=== PATIENT | male | born 1965 | race Hispanic/Latino ===

== ENCOUNTER 2020-10-30 16:24 | Inpatient (IN) | payer OTHER ==
[~2020-10-30] VITALS: Ht 185.4 cm; Wt 136.1 kg
[2020-10-30] MEDS ORDERED: PIPERACILLIN/TAZOBACTAM 3.375 GM in SODIUM CHLORIDE 0.9% 50ML 50 ML IV STA (16:55)
[2020-10-30] MEDS ORDERED: MORPHINE SULFATE INJ 2 MG/ML SYR IV PRN (17:00)
[2020-10-30] MEDS ORDERED: ONDANSETRON HCL INJ 2MG/ML 2ML 2 MG/ML VIAL IV PRN (17:00)
[2020-10-30] MEDS: SODIUM CHLORIDE 0.9% 1000ML 1,000 ML IV SCH ×2 (17:13→21:36)
[2020-10-30] MEDS ORDERED: MORPHINE SULFATE INJ 4 MG/ML INJ 1ML IV PRN (17:15)
[2020-10-30] MEDS ORDERED: SODIUM CHLORIDE 0.9% 1000ML 1,000 ML ONE (17:16)
[2020-10-30] MEDS ORDERED: PIPERACILLIN/TAZOBACTAM 3.375 GM VIAL ONE (17:17)
[2020-10-30] MEDS ORDERED: SODIUM CHLORIDE 0.9% 50ML 50 ML ONE (17:17)
[2020-10-30 18:51] VITALS: BP 137/72
[2020-10-30 19:15] VITALS: BP 121/64
[2020-10-30 20:30] VITALS: BP 121/64
[2020-10-30 22:05] VITALS: BP 121/64
[2020-10-30] MEDS ORDERED: TEMAZEPAM 15 MG CAP PO PRN (22:30)
[2020-10-30] MEDS: PIPERACILLIN/TAZOBACTAM 3.375 GM in SODIUM CHLORIDE 0.9% 50ML 50 ML IV SCH (23:14)
[2020-10-31] VITALS (8 sets, daily range): BP systolic 130–162; BP diastolic 68–80
[2020-10-31] MEDS: SODIUM CHLORIDE 0.9% 1000ML 1,000 ML IV SCH ×3 (03:51→17:14)
[2020-10-31] MEDS: PIPERACILLIN/TAZOBACTAM 3.375 GM in SODIUM CHLORIDE 0.9% 50ML 50 ML IV SCH ×3 (05:51→17:14)
[2020-10-31 07:13] LABS: BASOPHILS % 0.4 % (0.0-1.0); EOSINOPHILS # (AUTO) 0.1 (0.0-0.4); EOSINOPHILS % 0.8 % (0.0-6.0); LYMPHOCYTES # (AUTO) 3.2 (1.0-3.2); LYMPHOCYTES % 29.3 % (18.0-39.1); MEAN CORPUSCULAR HEMOGLOBIN 32.3 pg (28-32); MEAN CORPUSCULAR HGB CONC 33.3 g/dL (31-35); MONOCYTES # (AUTO) 1.1 (0.2-0.8); MONOCYTES % 9.9 % (4.4-11.3); NEUTROPHILS # (AUTO) 6.4 (2.1-6.9); PLATELET COUNT 280 x10e3/uL (140-360); RED BLOOD COUNT 3.71 x10e6/uL (4.3-5.7); RED CELL DISTRIBUTION WIDTH 13.2 % (11.7-14.4)
[2020-10-31] MEDS ORDERED: BALSAM PERU/CASTOR OIL 60 GM OINT...G. TP SCH (13:30)
[2020-10-31] MEDS: ENOXAPARIN 30 MG/0.3 ML SYR SC SCH (17:14)
[2020-11-01] VITALS: BP 134/74
[2020-11-01 04:00] VITALS: BP 125/68
[2020-11-01 05:28] LABS: BASOPHILS # (AUTO) 0.1 (0.0-0.1); BASOPHILS % 0.5 % (0.0-1.0); EOSINOPHILS # (AUTO) 0.2 (0.0-0.4); EOSINOPHILS % 1.4 % (0.0-6.0); HEMATOCRIT 37.4 % (38.2-49.6); HEMOGLOBIN 12.2 g/dL (14.0-18.0); LYMPHOCYTES # (AUTO) 4.5 (1.0-3.2); LYMPHOCYTES % 35.9 % (18.0-39.1); MEAN CORPUSCULAR HEMOGLOBIN 31.8 pg (28-32); MEAN CORPUSCULAR HGB CONC 32.6 g/dL (31-35); MEAN CORPUSCULAR VOLUME 97.4 fL (81-99); MONOCYTES # (AUTO) 1.3 (0.2-0.8); MONOCYTES % 10.1 % (4.4-11.3); NEUTROPHILS # (AUTO) 6.3 (2.1-6.9); PLATELET COUNT 300 x10e3/uL (140-360); RED BLOOD COUNT 3.84 x10e6/uL (4.3-5.7)
[2020-11-01] MEDS: PIPERACILLIN/TAZOBACTAM 3.375 GM in SODIUM CHLORIDE 0.9% 50ML 50 ML IV SCH ×5 (05:55→18:15)
[2020-11-01] MEDS: SODIUM CHLORIDE 0.9% 1000ML 1,000 ML IV SCH ×3 (05:55→17:00)
[2020-11-01 05:59] LABS: ANION GAP 12.1 mmol/L (8-16); CALCIUM 8.8 mg/dL (8.4-10.2); CREATININE, SERUM 0.74 mg/dL (0.72-1.25); POTASSIUM 4.1 mmol/L (3.5-5.1)
[2020-11-01 08:06] VITALS: BP 140/82
[2020-11-01 08:32] VITALS: BP 140/82
[2020-11-01 11:23] VITALS: BP 150/80
[2020-11-01 16:03] VITALS: BP 160/74
[2020-11-01] MEDS: ENOXAPARIN 30 MG/0.3 ML SYR SC SCH (17:00)
[2020-11-01] MEDS ORDERED: DOXYCYCLINE HY100 MG PO (18:25)
== END 2020-11-01 18:48 | disposition home or self-care (01) | DRG 872 ==
LOC: FSED 16:48 → ERHOLD 17:16 → MED/SURG3 18:43
PROVIDERS: ADMIT Family Medicine; ATTEND Family Medicine
DX: A41.9 Sepsis, unspecified organism (principal); L03.115 Cellulitis of right lower limb; Z20.822 Contact with and (suspected) exposure to COVID-19
CPT/HCPCS: 36415; 80048; 85025; 96361; 99251; 99284; J1650; J2270; J2543; J7030; U0002

== ENCOUNTER 2022-08-11 00:36 | Emergency (ER) | payer MEDICARE, OTHER ==
[~2022-08-11] VITALS: Ht 185.4 cm; Wt 147.4 kg
[~2022-08-11 00:36] MED LIST: DOXYCYCLINE HY100 MG PO
[2022-08-11] MEDS ORDERED: ONDANSETRON HCL INJ 2MG/ML 2ML 2 MG/ML VIAL IV STA (00:40)
[2022-08-11] MEDS ORDERED: ACETAMINOPHEN 1000 MG/100 ML IV STA (00:40)
[2022-08-11] MEDS ORDERED: SODIUM CHLORIDE 0.9% 1000ML 1,000 ML IV ONE ×3 (00:45→03:45)
[2022-08-11 00:53] LABS: BASOPHILS # (AUTO) 0.1 (0.0-0.1); BASOPHILS % 0.4 % (0.0-1.0); EOSINOPHILS # (AUTO) 0.1 (0.0-0.4); EOSINOPHILS % 0.6 % (0.0-6.0); HEMATOCRIT 42.7 % (38.2-49.6); HEMOGLOBIN 14.1 g/dL (14.0-18.0); LYMPHOCYTES # (AUTO) 5.1 (1.0-3.2); LYMPHOCYTES % 26.5 % (18.0-39.1); MONOCYTES # (AUTO) 0.6 (0.2-0.8); MONOCYTES % 3.1 % (4.4-11.3); NEUTROPHILS # (AUTO) 13.4 (2.1-6.9); PLATELET COUNT 244 x10e3/uL (140-360); RED CELL DISTRIBUTION WIDTH 13.2 % (11.7-14.4)
[2022-08-11 01:14] LABS: ALBUMIN 3.7 g/dL (3.5-5.0); ANION GAP 18.1 mmol/L (8-16); CREATININE, SERUM 1.02 mg/dL (0.72-1.25); POTASSIUM 4.1 mmol/L (3.5-5.1)
[2022-08-11 01:21] LABS: CREATINE KINASE MB 1.7 ng/mL (0-5.0)
[2022-08-11] MEDS ORDERED: IOPAMIDOL 370 MG/ML 100 ML INFUS..BTL INJ ONE (01:23)
[2022-08-11 02:31] LABS: CLARITY,URINE CLEAR (CLEAR); COLOR,URINE YELLOW (YELLOW); KETONES,URINE NEGATIVE (NEGATIVE); LEUKOCYTE ESTERASE ,URINE NEGATIVE (NEGATIVE); NITRITE,URINE NEGATIVE (NEGATIVE); PROTEIN,URINE DIPSTICK NEGATIVE (NEGATIVE); URINE UROBILINOGEN 0.2 mg/dL (0.2 - 1)
[2022-08-11 02:37] LABS: BACTERIA,URINE FEW /HPF; EPITHELIAL CELLS,URINE FEW /LPF; WBC,URINE (MAN) 0-5 /HPF (0-5)
[2022-08-11] MEDS ORDERED: SODIUM CHLORIDE 0.9% 1000ML 1,000 ML IV SCH (02:45)
[2022-08-11] MEDS ORDERED: Vancomycin IV 1 GM in SODIUM CHLORIDE 0.9% 250ML 250 ML IV ONE (03:45)
== END 2022-08-11 05:30 | disposition other institution (70) ==
LOC: ER 00:57
DX: R50.9 Fever, unspecified (principal); R65.20 Severe sepsis without septic shock; J18.9 Pneumonia, unspecified organism; L03.115 Cellulitis of right lower limb; D72.829 Elevated white blood cell count, unspecified; Z20.822 Contact with and (suspected) exposure to COVID-19
CPT/HCPCS: 36415; 71045; 74177; 80053; 81001; 82550; 82553; 83605; 83690; 84484; 85025; 87040; 87071; 87205; 99284; J0131; J0456; J0696; J2405; J3370; J7030; J7050; Q9967; U0002

== ENCOUNTER 2023-02-27 12:42 | Inpatient (IN) | payer MEDICARE ==
[~2023-02-27] VITALS: Ht 185.4 cm; Wt 154.0 kg
[2023-02-27] MEDS ORDERED: Morphine 4mg INJECTION 4 MG/ML INJ IV STA (13:06)
[2023-02-27] MEDS ORDERED: SODIUM CHLORIDE 0.9% 1000ML 1,000 ML IV STA (13:06)
[2023-02-27] MEDS ORDERED: ONDANSETRON HCL INJ 2MG/ML 2ML 2 MG/ML VIAL IV STA (13:06)
[2023-02-27 13:25] LABS: BASOPHILS % 0.3 % (0.0-1.0); EOSINOPHILS % 0.3 % (0.0-6.0); HEMOGLOBIN 13.6 g/dL (14.0-18.0); LYMPHOCYTES # (AUTO) 3.2 (1.0-3.2); LYMPHOCYTES % 21.9 % (18.0-39.1); MEAN CORPUSCULAR HEMOGLOBIN 31.9 pg (28-32); MEAN CORPUSCULAR HGB CONC 34.9 g/dL (31-35); MEAN CORPUSCULAR VOLUME 91.3 fL (81-99); MONOCYTES # (AUTO) 0.6 (0.2-0.8); MONOCYTES % 4.2 % (4.4-11.3); NEUTROPHILS # (AUTO) 10.8 (2.1-6.9); NEUTROPHILS % 72.8 % (38.7-80.0); PLATELET COUNT 197 x10e3/uL (140-360); RED BLOOD COUNT 4.27 x10e6/uL (4.3-5.7); RED CELL DISTRIBUTION WIDTH 13.8 % (11.7-14.4); WHITE BLOOD COUNT 14.82 x10e3/uL (4.8-10.8)
[2023-02-27 13:34] LABS: INR 1.04; PROTHROMBIN TIME 14.2 seconds (11.9-14.5)
[2023-02-27 13:35] LABS: PARTIAL THROMBOPLASTIN TIME 29.5 seconds (23.8-35.5)
[2023-02-27 13:42] LABS: ALBUMIN 3.3 g/dL (3.5-5.0); ALBUMIN/GLOBULIN RATIO 0.8 (0.8-2.0); ANION GAP 14.3 mmol/L (8-16); CALCIUM 9.3 mg/dL (8.4-10.2); CREATININE, SERUM 0.82 mg/dL (0.72-1.25); MAGNESIUM 1.8 MG/DL (1.3-2.1); POTASSIUM 3.3 mmol/L (3.5-5.1)
[2023-02-27] MEDS ORDERED: SODIUM CHLORIDE 0.9% 500ML 500 ML ONE (13:57)
[2023-02-27] MEDS ORDERED: Vancomycin IV 2 GM in SODIUM CHLORIDE 0.9% 500ML 500 ML IV ONE (14:00)
[2023-02-27] MEDS ORDERED: IOPAMIDOL 370 MG/ML 100 ML INFUS..BTL INJ ONE (14:19)
[2023-02-27 16:27] LABS: AMPHETAMINES SCREEN,URINE NEGATIVE (NEGATIVE); BENZODIAZEPINES SCREEN,URINE NEGATIVE (NEGATIVE); PHENCYCLIDINE SCREEN,URINE NEGATIVE (NEGATIVE)
[2023-02-27] MEDS ORDERED: ASPIRIN 81 MG CHEW TAB PO ONE (16:30)
[2023-02-27] MEDS ORDERED: Morphine 4mg INJECTION 4 MG/ML INJ IV PRN (16:45)
[2023-02-27] MEDS ORDERED: ONDANSETRON HCL INJ 2MG/ML 2ML 2 MG/ML VIAL IV PRN (16:45)
[2023-02-27 16:47] LABS: CLARITY,URINE HAZY (CLEAR); COLOR,URINE YELLOW (YELLOW); LEUKOCYTE ESTERASE ,URINE NEGATIVE (NEGATIVE); NITRITE,URINE NEGATIVE (NEGATIVE); PROTEIN,URINE DIPSTICK TRACE (NEGATIVE)
[2023-02-27 16:48] LABS: KETONES,URINE TRACE (NEGATIVE); URINE UROBILINOGEN 0.2 mg/dL (0.2 - 1)
[2023-02-27 16:50] LABS: BACTERIA,URINE FEW /HPF; EPITHELIAL CELLS,URINE FEW /LPF; RBC,URINE 0-5 /HPF (0-5); WBC,URINE (MAN) 0-5 /HPF (0-5)
[2023-02-27] MEDS: ENOXAPARIN SOD INJ 120 MG/0.8 ML SYR SC SCH (16:50)
[2023-02-27] MEDS: KCL 20MEQ/.9 SOD CHL 1,000 ML IV SCH (16:56)
[2023-02-27] MEDS ORDERED: KCL 20MEQ/.9 SOD CHL 1,000 ML IV ONE (16:57)
[2023-02-27] MEDS ORDERED: SODIUM CHLORIDE 0.9% 1000ML 1,000 ML IV ONE (17:00)
[2023-02-27 18:08] VITALS: BP 138/74; PULSE 85; RESP 19; TEMP 97.2; O2SAT 97
[2023-02-27 20:10] VITALS: BP 139/73; PULSE 84; RESP 20; TEMP 98.2; O2SAT 100
[2023-02-27 20:40] VITALS: BP 139/73; PULSE 84; RESP 20; TEMP 98.2; O2SAT 100
[2023-02-27 23:31] VITALS: BP 139/73; PULSE 84; RESP 20; TEMP 98.2; O2SAT 100
[2023-02-28] VITALS: BP 129/67; PULSE 76; RESP 18; TEMP 98.1; O2SAT 99
[2023-02-28] MEDS: Vancomycin IV 1 GM in SODIUM CHLORIDE 0.9% 250ML 250 ML IV SCH ×2 (02:16→13:40)
[2023-02-28 04:00] VITALS: BP 138/79; PULSE 76; RESP 18; TEMP 98.2; O2SAT 97
[2023-02-28] MEDS: ENOXAPARIN SOD INJ 120 MG/0.8 ML SYR SC SCH (05:02)
[2023-02-28] MEDS: KCL 20MEQ/.9 SOD CHL 1,000 ML IV SCH (05:03)
[2023-02-28 06:10] LABS: BASOPHILS # (AUTO) 0.1 (0.0-0.1); BASOPHILS % 0.6 % (0.0-1.0); EOSINOPHILS # (AUTO) 0.1 (0.0-0.4); HEMATOCRIT 36.2 % (38.2-49.6); HEMOGLOBIN 12.8 g/dL (14.0-18.0); LYMPHOCYTES # (AUTO) 3.3 (1.0-3.2); LYMPHOCYTES % 34.6 % (18.0-39.1); MEAN CORPUSCULAR HEMOGLOBIN 33.8 pg (28-32); MEAN CORPUSCULAR HGB CONC 35.4 g/dL (31-35); MEAN CORPUSCULAR VOLUME 95.5 fL (81-99); MONOCYTES # (AUTO) 0.8 (0.2-0.8); MONOCYTES % 8.8 % (4.4-11.3); NEUTROPHILS # (AUTO) 5.2 (2.1-6.9); NEUTROPHILS % 54.7 % (38.7-80.0); PLATELET COUNT 148 x10e3/uL (140-360); RED BLOOD COUNT 3.79 x10e6/uL (4.3-5.7); RED CELL DISTRIBUTION WIDTH 14.4 % (11.7-14.4); WHITE BLOOD COUNT 9.59 x10e3/uL (4.8-10.8)
[2023-02-28 06:26] LABS: ALBUMIN/GLOBULIN RATIO 0.8 (0.8-2.0); ANION GAP 13.7 mmol/L (8-16); CALCIUM 8.8 mg/dL (8.4-10.2); CREATININE, SERUM 0.74 mg/dL (0.72-1.25); POTASSIUM 3.7 mmol/L (3.5-5.1)
[2023-02-28 08:12] VITALS: BP 122/66; PULSE 81; RESP 18; TEMP 98.7; O2SAT 96
[2023-02-28] MEDS: ASPIRIN 81 MG ENTERIC COATED PO SCH (08:46)
[2023-02-28 11:37] VITALS: BP 129/72; PULSE 79; RESP 19; TEMP 98.3; O2SAT 97
[2023-02-28] MEDS: ENOXAPARIN SOD INJ 60 MG/0.6 ML SYR SC SCH (15:26)
[2023-02-28 15:59] VITALS: BP 142/60; PULSE 76; RESP 17; TEMP 97.8; O2SAT 98
[2023-02-28 20:00] VITALS: BP 153/77; PULSE 76; RESP 20; TEMP 98.4; O2SAT 100
[2023-03-01] VITALS (9 sets, daily range): BP systolic 139–163; BP diastolic 65–89; PULSE 67–76; RESP 16–20; TEMP 98.1–99.2; O2SAT 97–100
[2023-03-01] MEDS: Vancomycin IV 1 GM in SODIUM CHLORIDE 0.9% 250ML 250 ML IV SCH ×2 (02:23→17:01)
[2023-03-01] MEDS: ENOXAPARIN SOD INJ 60 MG/0.6 ML SYR SC SCH ×2 (02:40→16:11)
[2023-03-01 06:17] LABS: BASOPHILS # (AUTO) 0.1 (0.0-0.1); BASOPHILS % 0.6 % (0.0-1.0); EOSINOPHILS # (AUTO) 0.1 (0.0-0.4); EOSINOPHILS % 1.8 % (0.0-6.0); HEMATOCRIT 37.8 % (38.2-49.6); HEMOGLOBIN 12.3 g/dL (14.0-18.0); LYMPHOCYTES # (AUTO) 2.9 (1.0-3.2); LYMPHOCYTES % 36.6 % (18.0-39.1); MEAN CORPUSCULAR HEMOGLOBIN 31.9 pg (28-32); MEAN CORPUSCULAR HGB CONC 32.5 g/dL (31-35); MEAN CORPUSCULAR VOLUME 97.9 fL (81-99); MONOCYTES # (AUTO) 0.5 (0.2-0.8); MONOCYTES % 6.6 % (4.4-11.3); NEUTROPHILS # (AUTO) 4.3 (2.1-6.9); PLATELET COUNT 192 x10e3/uL (140-360); RED BLOOD COUNT 3.86 x10e6/uL (4.3-5.7); RED CELL DISTRIBUTION WIDTH 13.6 % (11.7-14.4)
[2023-03-01 07:02] LABS: ALBUMIN 2.8 g/dL (3.5-5.0); ALBUMIN/GLOBULIN RATIO 0.8 (0.8-2.0); ANION GAP 12.7 mmol/L (8-16); CALCIUM 8.7 mg/dL (8.4-10.2); CHOL/HDL RATIO 6.6 (3.9-4.7); CREATININE, SERUM 0.69 mg/dL (0.72-1.25); POTASSIUM 3.7 mmol/L (3.5-5.1)
[2023-03-01 07:11] LABS: THYROID STIMULATING HORMONE 1.978 uIU/mL (0.350-4.940)
[2023-03-01] MEDS ORDERED: ONDANSETRON HCL 4 MG ORAL DISINTEGRATING TAB PO PRN (09:00)
[2023-03-01] MEDS: ASPIRIN 81 MG ENTERIC COATED PO SCH (09:01)
[2023-03-01] MEDS: METOPROLOL SUCCINATE 25 MG TAB XL PO SCH (10:46)
[2023-03-01] MEDS: ATORVASTATIN 20 MG TAB PO SCH (21:46)
[2023-03-02] VITALS (9 sets, daily range): BP systolic 143–158; BP diastolic 71–82; PULSE 66–86; RESP 16–20; TEMP 97.9–99; O2SAT 97–99
[2023-03-02] MEDS: Vancomycin IV 1 GM in SODIUM CHLORIDE 0.9% 250ML 250 ML IV SCH (01:39)
[2023-03-02] MEDS: ENOXAPARIN SOD INJ 60 MG/0.6 ML SYR SC SCH ×2 (02:40→14:51)
[2023-03-02] MEDS: ASPIRIN 81 MG ENTERIC COATED PO SCH (09:23)
[2023-03-02] MEDS: METOPROLOL SUCCINATE 25 MG TAB XL PO SCH (09:24)
[2023-03-02] MEDS: Vancomycin IV 2 GM in SODIUM CHLORIDE 0.9% 500ML 500 ML IV SCH (14:51)
[2023-03-02] MEDS: ATORVASTATIN 20 MG TAB PO SCH (20:53)
[2023-03-03] VITALS (9 sets, daily range): BP systolic 137–152; BP diastolic 66–100; PULSE 70–78; RESP 16–21; TEMP 98.1–99.3; O2SAT 95–100
[2023-03-03] MEDS: Vancomycin IV 2 GM in SODIUM CHLORIDE 0.9% 500ML 500 ML IV SCH ×2 (02:06→12:02)
[2023-03-03] MEDS: ENOXAPARIN SOD INJ 60 MG/0.6 ML SYR SC SCH ×2 (02:06→16:31)
[2023-03-03 05:02] LABS: BASOPHILS # (AUTO) 0.1 (0.0-0.1); BASOPHILS % 0.6 % (0.0-1.0); EOSINOPHILS # (AUTO) 0.1 (0.0-0.4); EOSINOPHILS % 1.3 % (0.0-6.0); HEMATOCRIT 37.7 % (38.2-49.6); HEMOGLOBIN 12.9 g/dL (14.0-18.0); LYMPHOCYTES # (AUTO) 3.9 (1.0-3.2); LYMPHOCYTES % 36.6 % (18.0-39.1); MEAN CORPUSCULAR HEMOGLOBIN 31.7 pg (28-32); MEAN CORPUSCULAR HGB CONC 34.2 g/dL (31-35); MEAN CORPUSCULAR VOLUME 92.6 fL (81-99); MONOCYTES # (AUTO) 0.9 (0.2-0.8); MONOCYTES % 8.1 % (4.4-11.3); NEUTROPHILS # (AUTO) 5.5 (2.1-6.9); NEUTROPHILS % 51.9 % (38.7-80.0); PLATELET COUNT 252 x10e3/uL (140-360); RED BLOOD COUNT 4.07 x10e6/uL (4.3-5.7); RED CELL DISTRIBUTION WIDTH 12.8 % (11.7-14.4); WHITE BLOOD COUNT 10.58 x10e3/uL (4.8-10.8)
[2023-03-03 05:35] LABS: ANION GAP 10.9 mmol/L (8-16); CALCIUM 8.8 mg/dL (8.4-10.2); CREATININE, SERUM 0.82 mg/dL (0.72-1.25); MAGNESIUM 1.8 MG/DL (1.3-2.1); PHOSPHORUS 3.6 MG/DL (2.3-4.7); POTASSIUM 3.9 mmol/L (3.5-5.1)
[2023-03-03] MEDS: METOPROLOL SUCCINATE 25 MG TAB XL PO SCH (08:42)
[2023-03-03] MEDS: ASPIRIN 81 MG ENTERIC COATED PO SCH (08:43)
[2023-03-03] MEDS: ATORVASTATIN 20 MG TAB PO SCH (20:37)
[2023-03-04] VITALS (11 sets, daily range): BP systolic 134–159; BP diastolic 64–88; PULSE 71–85; RESP 16–21; TEMP 97.8–99.4; O2SAT 94–100
[2023-03-04] MEDS: Vancomycin IV 2 GM in SODIUM CHLORIDE 0.9% 500ML 500 ML IV SCH (01:57)
[2023-03-04] MEDS: ENOXAPARIN SOD INJ 60 MG/0.6 ML SYR SC SCH ×2 (01:57→14:25)
[2023-03-04] MEDS: METOPROLOL SUCCINATE 25 MG TAB XL PO SCH (08:25)
[2023-03-04] MEDS: ASPIRIN 81 MG ENTERIC COATED PO SCH (08:27)
[2023-03-04] MEDS ORDERED: NITROGLYCERIN 0.4 MG SUBL ONE (10:13)
[2023-03-04] MEDS: DAPTOMYCIN 500mg 10ML 1,000 MG in SODIUM CHLORIDE 0.9% 100 ML IV SCH (11:30)
[2023-03-05 00:45] VITALS: BP 125/67; PULSE 79; RESP 20; TEMP 99.2; O2SAT 98
[2023-03-05] MEDS: ENOXAPARIN SOD INJ 60 MG/0.6 ML SYR SC SCH (03:36)
[2023-03-05 04:47] VITALS: BP 96/45; PULSE 80; RESP 19; TEMP 98.7; O2SAT 97
[2023-03-05 08:00] VITALS: BP 144/64; PULSE 81; RESP 20; TEMP 98; O2SAT 96
[2023-03-05 08:56] VITALS: BP 144/61; PULSE 81; RESP 20; TEMP 98; O2SAT 96
[2023-03-05] MEDS: METOPROLOL SUCCINATE 25 MG TAB XL PO SCH (09:33)
[2023-03-05] MEDS: ASPIRIN 81 MG ENTERIC COATED PO SCH (09:33)
[2023-03-05] MEDS: DAPTOMYCIN 500mg 10ML 1,000 MG in SODIUM CHLORIDE 0.9% 100 ML IV SCH (12:21)
[2023-03-05 12:32] VITALS: BP 147/89; PULSE 75; RESP 20; TEMP 99; O2SAT 97
[2023-03-05] MEDS ORDERED: ASPIRIN EC81 MG PO (13:14)
[2023-03-05] MEDS ORDERED: TOPROL XL25 MG PO (13:14)
[2023-03-05] MEDS ORDERED: DAPTOMYCIN500 MG/50 IV (14:47)
[2023-03-05] MEDS ORDERED: MUPIROCIN 2% OINT 22 GM TUBE ONE (16:22)
== END 2023-03-05 16:25 | disposition home or self-care (01) | DRG 603 ==
LOC: ER 12:51 → ERHOLD 16:43 → MED/SURG2 18:05
PROVIDERS: ADMIT Internal Medicine; ATTEND Internal Medicine
PROC: 02HV33Z Insertion of Infusion Device into Superior Vena Cava, Percutaneous Approach (ICD-10-PCS; principal; 2023-03-04)
PROC: B548ZZA Ultrasonography of Superior Vena Cava, Guidance (ICD-10-PCS; 2023-03-04)
DX: L03.116 Cellulitis of left lower limb (principal); Z68.41 Body mass index [BMI] 40.0-44.9, adult; E66.01 Morbid (severe) obesity due to excess calories; G47.33 Obstructive sleep apnea (adult) (pediatric); R19.7 Diarrhea, unspecified; R79.89 Other specified abnormal findings of blood chemistry; I10 Essential (primary) hypertension; R26.89 Other abnormalities of gait and mobility; E78.5 Hyperlipidemia, unspecified; Z20.822 Contact with and (suspected) exposure to COVID-19
CPT/HCPCS: 36415; 36569; 71045; 71260; 80048; 80053; 80061; 80202; 80307; 81001; 82550; 83605; 83735; 84100; 84443; 84484; 85025; 85610; 85730; 87040; 93005; 93306; 93971; 94799; 99252; 99284; J1650; J2270; J2405; J2543; J7030; J7040; J7050; Q9967; U0002

== ENCOUNTER 2024-01-22 10:24 | Inpatient (IN) | payer MEDICARE ==
[~2024-01-22] VITALS: Ht 210.8 cm; Wt 158.8 kg
[2024-01-22] VITALS (8 sets, daily range): BP systolic 120–121; BP diastolic 53; PULSE 99–118; RESP 16–22; TEMP 99.3–100.8; O2SAT 94–98
[~2024-01-22 10:24] MED LIST changes: +ASPIRIN EC81 MG PO; +DAPTOMYCIN500 MG/50 IV; +TOPROL XL25 MG PO
[2024-01-22 11:27] LABS: INFLUENZAE A&B ANTIGEN (RAPID) NEGATIVE (NEGATIVE); RESPIRATORY SYNC. VIRUS NEGATIVE (NEGATIVE)
[2024-01-22] MEDS: SODIUM CHLORIDE 0.9% 1000ML 1,000 ML IV SCH ×3 (11:49→16:19)
[2024-01-22 11:56] LABS: BASOPHILS # (AUTO) 0.1 (0.0-0.1); BASOPHILS % 0.3 % (0.0-1.0); EOSINOPHILS % 0.1 % (0.0-6.0); HEMATOCRIT 43.3 % (38.2-49.6); LYMPHOCYTES # (AUTO) 1.6 (1.0-3.2); LYMPHOCYTES % 8.2 % (18.0-39.1); MEAN CORPUSCULAR HEMOGLOBIN 31.6 pg (28-32); MEAN CORPUSCULAR HGB CONC 32.3 g/dL (31-35); MEAN CORPUSCULAR VOLUME 97.7 fL (81-99); MONOCYTES % 5.4 % (4.4-11.3); NEUTROPHILS # (AUTO) 16.5 (2.1-6.9); NEUTROPHILS % 85.4 % (38.7-80.0); PLATELET COUNT 231 x10e3/uL (140-360); RED BLOOD COUNT 4.43 x10e6/uL (4.3-5.7); RED CELL DISTRIBUTION WIDTH 13.1 % (11.7-14.4); WHITE BLOOD COUNT 19.33 x10e3/uL (4.8-10.8)
[2024-01-22 12:13] LABS: ALBUMIN 3.6 g/dL (3.5-5.0); ANION GAP 15.1 mmol/L (8-16); BILIRUBIN,TOTAL 0.3 mg/dL (0.2-1.2); CALCIUM 8.9 mg/dL (8.4-10.2); CREATININE, SERUM 0.85 mg/dL (0.72-1.25); POTASSIUM 4.1 mmol/L (3.5-5.1); TOTAL PROTEIN 7.2 g/dL (6.5-8.1)
[2024-01-22 12:28] LABS: BILIRUBIN,URINE NEGATIVE (NEGATIVE); CLARITY,URINE CLEAR (CLEAR); COLOR,URINE YELLOW (YELLOW); GLUCOSE, URINE NEGATIVE (NEGATIVE); KETONES,URINE NEGATIVE (NEGATIVE); LEUKOCYTE ESTERASE ,URINE NEGATIVE (NEGATIVE); NITRITE,URINE NEGATIVE (NEGATIVE); PH,URINE 6 (5 - 7); PROTEIN,URINE DIPSTICK NEGATIVE (NEGATIVE); URINE UROBILINOGEN 0.2 mg/dL (0.2 - 1)
[2024-01-22 12:39] LABS: BACTERIA,URINE RARE /HPF; EPITHELIAL CELLS,URINE FEW /LPF; RBC,URINE 0-5 /HPF (0-5)
[2024-01-22] MEDS ORDERED: ACETAMINOPHEN 325 MG TAB PO ONE (12:45)
[2024-01-22] MEDS ORDERED: SODIUM CHLORIDE 0.9% 1000ML 1,000 ML IV ONE (12:45)
[2024-01-22] MEDS: ACETAMINOPHEN 325 MG TAB PO PRN (16:40)
[2024-01-23] VITALS (11 sets, daily range): BP systolic 107–148; BP diastolic 50–65; PULSE 86–104; RESP 18–21; TEMP 97.5–99.7; O2SAT 96–100
[2024-01-23 05:20] LABS: BASOPHILS % 0.2 % (0.0-1.0); HEMATOCRIT 40.1 % (38.2-49.6); LYMPHOCYTES % 9.7 % (18.0-39.1); MEAN CORPUSCULAR HEMOGLOBIN 31.6 pg (28-32); MEAN CORPUSCULAR HGB CONC 32.4 g/dL (31-35); MEAN CORPUSCULAR VOLUME 97.6 fL (81-99); MONOCYTES # (AUTO) 0.5 (0.2-0.8); MONOCYTES % 2.4 % (4.4-11.3); NEUTROPHILS # (AUTO) 18.1 (2.1-6.9); PLATELET COUNT 197 x10e3/uL (140-360); RED BLOOD COUNT 4.11 x10e6/uL (4.3-5.7); RED CELL DISTRIBUTION WIDTH 13.7 % (11.7-14.4); WHITE BLOOD COUNT 20.83 x10e3/uL (4.8-10.8)
[2024-01-23 05:36] LABS: MAGNESIUM 1.4 MG/DL (1.3-2.1); PHOSPHORUS 2.3 MG/DL (2.3-4.7)
[2024-01-23 05:38] LABS: ANION GAP 10.7 mmol/L (8-16); CALCIUM 8.1 mg/dL (8.4-10.2); CREATININE, SERUM 0.78 mg/dL (0.72-1.25); POTASSIUM 3.7 mmol/L (3.5-5.1)
[2024-01-23] MEDS ORDERED: ONDANSETRON HCL INJ 2MG/ML 2ML 2 MG/ML VIAL IV PRN (06:15)
[2024-01-23] MEDS ORDERED: HYDRALAZINE HCL 20 MG/ML VIAL IV PRN (06:15)
[2024-01-23] MEDS ORDERED: POLYETHYLENE GLYCOL 3350 17 GM PACK PO PRN (06:15)
[2024-01-23] MEDS: MAGNESIUM SULFATE 2GM/50ML 50 ML IV ONE ×2 (08:14→09:36)
[2024-01-23] MEDS: FAMOTIDINE 20 MG TAB PO SCH (08:14)
[2024-01-23] MEDS: DOCUSATE SODIUM 100 MG CAP PO SCH (08:14)
[2024-01-23] MEDS: VANCOMYCIN 1.25GM/250 ML (PEG) 250 ML IV SCH (14:20)
[2024-01-23] MEDS ORDERED: IOPAMIDOL 370 MG/ML 100 ML INFUS..BTL INJ ONE (14:41)
[2024-01-24] VITALS (10 sets, daily range): BP systolic 106–157; BP diastolic 42–77; PULSE 80–86; RESP 16–20; TEMP 97.9–98.9; O2SAT 96–100
[2024-01-24 05:17] LABS: BASOPHILS % 0.2 % (0.0-1.0); EOSINOPHILS # (AUTO) 0.1 (0.0-0.4); EOSINOPHILS % 0.9 % (0.0-6.0); HEMATOCRIT 38.9 % (38.2-49.6); HEMOGLOBIN 12.1 g/dL (14.0-18.0); LYMPHOCYTES # (AUTO) 3.5 (1.0-3.2); LYMPHOCYTES % 28.7 % (18.0-39.1); MEAN CORPUSCULAR HEMOGLOBIN 31.5 pg (28-32); MEAN CORPUSCULAR HGB CONC 31.1 g/dL (31-35); MEAN CORPUSCULAR VOLUME 101.3 fL (81-99); MONOCYTES # (AUTO) 0.9 (0.2-0.8); MONOCYTES % 7.2 % (4.4-11.3); NEUTROPHILS # (AUTO) 7.6 (2.1-6.9); NEUTROPHILS % 62.3 % (38.7-80.0); PLATELET COUNT 182 x10e3/uL (140-360); RED BLOOD COUNT 3.84 x10e6/uL (4.3-5.7); RED CELL DISTRIBUTION WIDTH 13.9 % (11.7-14.4); WHITE BLOOD COUNT 12.11 x10e3/uL (4.8-10.8)
[2024-01-24 06:01] LABS: ANION GAP 11.7 mmol/L (8-16); CALCIUM 8.4 mg/dL (8.4-10.2); CREATININE, SERUM 0.74 mg/dL (0.72-1.25); MAGNESIUM 1.8 MG/DL (1.3-2.1); POTASSIUM 3.7 mmol/L (3.5-5.1)
[2024-01-25] VITALS (10 sets, daily range): BP systolic 132–166; BP diastolic 64–82; PULSE 71–80; RESP 18–22; TEMP 97.7–98.8; O2SAT 96–99
[2024-01-25 07:18] LABS: BASOPHILS % 0.3 % (0.0-1.0); EOSINOPHILS # (AUTO) 0.1 (0.0-0.4); EOSINOPHILS % 1.3 % (0.0-6.0); HEMOGLOBIN 12.5 g/dL (14.0-18.0); MEAN CORPUSCULAR HEMOGLOBIN 31.3 pg (28-32); MEAN CORPUSCULAR HGB CONC 32.1 g/dL (31-35); MEAN CORPUSCULAR VOLUME 97.5 fL (81-99); MONOCYTES # (AUTO) 0.7 (0.2-0.8); MONOCYTES % 8.4 % (4.4-11.3); NEUTROPHILS # (AUTO) 4.9 (2.1-6.9); NEUTROPHILS % 55.7 % (38.7-80.0); PLATELET COUNT 196 x10e3/uL (140-360); RED CELL DISTRIBUTION WIDTH 13.5 % (11.7-14.4); WHITE BLOOD COUNT 8.71 x10e3/uL (4.8-10.8)
[2024-01-25 07:36] LABS: ANION GAP 10.9 mmol/L (8-16); CALCIUM 8.5 mg/dL (8.4-10.2); CREATININE, SERUM 0.66 mg/dL (0.72-1.25); POTASSIUM 3.9 mmol/L (3.5-5.1)
[2024-01-25] MEDS: CEFTRIAXONE 2 GM in SODIUM CHLORIDE 0.9% 100 ML IV SCH (08:46)
[2024-01-25] MEDS ORDERED: CLOPIDOGREL75 MG PO (11:55)
[2024-01-25] MEDS ORDERED: METOPROLOL SUCC50 MG PO (11:55)
[2024-01-25] MEDS ORDERED: TORSEMIDE10 MG PO (11:55)
[2024-01-25] MEDS ORDERED: ROSUVASTATIN CA40 MG PO (11:55)
[2024-01-25] MEDS: ENOXAPARIN SOD INJ 40 MG/0.4 ML SYR SC SCH (17:21)
[2024-01-25] MEDS: ATORVASTATIN 40 MG TAB PO SCH (22:08)
[2024-01-26] VITALS (8 sets, daily range): BP systolic 129–152; BP diastolic 55–78; PULSE 70–90; RESP 18–20; TEMP 97.8–98.6; O2SAT 95–100
[2024-01-26 05:32] LABS: BASOPHILS % 0.3 % (0.0-1.0); EOSINOPHILS # (AUTO) 0.1 (0.0-0.4); EOSINOPHILS % 1.5 % (0.0-6.0); HEMOGLOBIN 12.8 g/dL (14.0-18.0); LYMPHOCYTES # (AUTO) 3.3 (1.0-3.2); LYMPHOCYTES % 36.9 % (18.0-39.1); MEAN CORPUSCULAR HEMOGLOBIN 31.4 pg (28-32); MONOCYTES # (AUTO) 0.8 (0.2-0.8); MONOCYTES % 8.4 % (4.4-11.3); NEUTROPHILS # (AUTO) 4.7 (2.1-6.9); NEUTROPHILS % 52.5 % (38.7-80.0); PLATELET COUNT 233 x10e3/uL (140-360); RED BLOOD COUNT 4.08 x10e6/uL (4.3-5.7); RED CELL DISTRIBUTION WIDTH 13.5 % (11.7-14.4); WHITE BLOOD COUNT 8.94 x10e3/uL (4.8-10.8)
[2024-01-26 05:58] LABS: ANION GAP 11.8 mmol/L (8-16); CALCIUM 8.8 mg/dL (8.4-10.2); CREATININE, SERUM 0.69 mg/dL (0.72-1.25); MAGNESIUM 1.7 MG/DL (1.3-2.1); POTASSIUM 3.8 mmol/L (3.5-5.1)
[2024-01-26] MEDS: METOPROLOL SUCCINATE 50 MG TAB XL PO SCH (09:00)
[2024-01-26] MEDS: MAGNESIUM SULF 1GRAM/DEXTROSE 100 ML IV ONE (09:01)
[2024-01-26] MEDS: CLOPIDOGREL BISULFATE 75 MG TAB PO SCH (09:01)
[2024-01-26] MEDS: CHOLESTYRAMINE 4 GM PACKET PO SCH (14:31)
[2024-01-26] MEDS: CHOLESTYRAMINE 4 GM PACKET PO PRN (17:30)
[2024-01-27] VITALS (9 sets, daily range): BP systolic 129–153; BP diastolic 62–97; PULSE 73–83; RESP 18–20; TEMP 97.5–99.1; O2SAT 94–99
[2024-01-27] MEDS ORDERED: ONDANSETRON HCL 4 MG ORAL DISINTEGRATING TAB PO PRN (12:30)
[2024-01-27] MEDS: MAGNESIUM SULF 1GRAM/DEXTROSE 100 ML IV ONE (13:43)
== END 2024-01-27 16:54 | disposition home or self-care (01) | DRG 872 ==
LOC: ER 10:30 → ERHOLD 14:03 → MED/SURG2 15:26 → OBSVTOIN 01-23 11:58
PROVIDERS: ADMIT Internal Medicine; ATTEND Internal Medicine
PROC: 3E0333Z Introduction of Anti-inflammatory into Peripheral Vein, Percutaneous Approach (ICD-10-PCS; principal; 2024-01-23)
PROC: 02HV33Z Insertion of Infusion Device into Superior Vena Cava, Percutaneous Approach (ICD-10-PCS; 2024-01-26)
DX: A40.8 Other streptococcal sepsis (principal); E87.20 Acidosis, unspecified; L03.115 Cellulitis of right lower limb; R19.7 Diarrhea, unspecified; I10 Essential (primary) hypertension; E83.42 Hypomagnesemia; G47.33 Obstructive sleep apnea (adult) (pediatric); M25.561 Pain in right knee; M25.562 Pain in left knee; E66.01 Morbid (severe) obesity due to excess calories; Z68.35 Body mass index [BMI] 35.0-35.9, adult; Z11.52 Encounter for screening for COVID-19; Z79.82 Long term (current) use of aspirin; Z87.891 Personal history of nicotine dependence; Z82.49 Family history of ischemic heart disease and other diseases of the circulatory system
CPT/HCPCS: 36415; 36569; 71045; 74177; 80048; 80053; 81001; 82948; 83036; 83605; 83735; 84100; 85025; 87040; 87071; 87086; 87205; 87400; 87420; 93005; 93306; 93971; 94799; 99252; 99284; G0378; J0696; J1650; J3475; J7030; J7050; Q9967; U0002